=== PATIENT | male | born 1980 | race Caucasian/White ===

== ENCOUNTER 2021-02-03 10:46 | Emergency (ER) | payer OTHER ==
[2021-02-03 11:38] LABS: HEMOGLOBIN 13.8 gm/dl (14.0-17.5); RED BLOOD COUNT 4.87 M/UL (4.20-5.50); WHITE BLOOD COUNT 4.4 K/UL (4.5-11.0)
[2021-02-03 11:54] LABS: BUN/CREATININE RATIO 21 (0-10)
== END 2021-02-03 13:15 | disposition home or self-care (01) ==
LOC: ER1 10:46
PROVIDERS: Student in an Organized Health Care Education/Training Program
DX: R04.0 Epistaxis (principal)
CPT/HCPCS: 80053; 85025; 85610; 85730; 99283